=== PATIENT | female | born 2000 | race Asian ===

== ENCOUNTER 2022-08-10 02:54 | Observation (INO) ==
[2022-08-10] MEDS ORDERED: ONDANSETRON INJ 2 MG/ML 2 ML VIAL IV STA (03:06)
[2022-08-10] MEDS ORDERED: MoRPHine SULFATE 2 MG/ML CARP IV PRN ×2 (03:06→09:35)
[2022-08-10] MEDS ORDERED: SODIUM CHLORIDE 0.9% 1000ML 1,000 ML IV SCH (03:15)
[2022-08-10 03:36] LABS: Basophils # (auto) 0.02 K/uL (0-0.2); Basophils % (auto) 0.3 %; Eosinophils # (auto) 0.02 K/uL (0-0.50); Eosinophils % (auto) 0.3 %; Hematocrit (blood only) 37.9 % (34.1-44.9); Hemoglobin 11.9 g/dl (12.0-16.0); Immature Granulocytes # (auto) 0.03 K/uL (0.00-0.02); Immature Granulocytes % (auto) 0.4 %; Lymphocytes # (auto) 0.52 K/uL (1.2-3.4); Lymphocytes % (auto) 7.7 %; Mean Corpuscular Hemoglobin 24.2 pg (25.0-34.0); Mean Corpuscular Hgb Conc 31.4 g/dL (32.0-36.0); Mean Platelet Volume 11.4 fL (9.4-12.3); Monocytes # (auto) 0.55 K/uL (0.24-0.82); Monocytes % (auto) 8.1 %; Neutrophils # (auto) 5.61 K/uL (1.4-6.5); Neutrophils % (auto) 83.2 %; Platelet Count 302 K/uL (130-400); RDW Coefficient of Variation 15.2 % (11.5-14.5); RDW Standard Deviation 41.8 fL (36.4-46.3); Red Blood Count 4.92 M/uL (3.93-5.22); White Blood Count 6.75 K/ul (4.8-10.8)
[2022-08-10 03:43] LABS: Appearance Urine Cloudy (Clear); Bacteria Urine Automated Negative (Negative); Bilirubin Urine Negative (Negative); Blood Urine 3+ (Negative); Color Urine Dark Yellow; Epithelial Cell Urine Auto >30 /lpf (0-5); Glucose Urine UA Negative (Negative); Ketones Urine Negative (Negative); Leukocyte Esterase Urine 1+ (Negative); Nitrite Urine Negative (Negative); Protein Urine 1+ (Negative); RBC Urine Automated >30 /hpf (0-4); Specific Gravity Urine 1.018 (1.000-1.030); Urobilinogen Urine Negative (Negative)
[2022-08-10 04:04] LABS: Pregnancy Test, Serum Negative (Negative)
[2022-08-10 04:12] LABS: Albumin Globulin Ratio 1.4 (0.9-2); Albumin Level 4.7 gm/dl (3.4-5.0); BUN Creatinine Ratio 14.1 (10-20); Bilirubin,Total 0.4 mg/dl (0.2-1.0); Calcium 9.2 mg/dl (8.5-10.1); Creatinine Clr Calc Pharmacy 108.2 ml/min; Est GFR (African American) 148.9 ml/min; Est GFR (Non-African American) 128.5 ml/min; Globulin 3.4 gm/dl (2.5-4.0); Potassium 3.7 mmol/L (3.5-5.1); Total Protein 8.1 gm/dl (6.0-8.3)
[2022-08-10] MEDS ORDERED: OPTIRAY 350 100ml IV ONE (04:27)
--- NOTE | 2022-08-10 07:16 | Emergency Department Note ---
History of Present Illness General Chief complaint: Abdominal Pain Stated complaint: ABDOMINAL PAIN/VOMITING Time Seen by Provider: 08/10/22 03:02 History of Present Illness Maximum Pain Intensity: 0 This is a 22-year-old female presenting to the emergency department for evaluation of mid abdominal pain with nausea and vomiting. The patient symptoms began around 12 midnight, roughly 3 hours prior to arrival. She believes that she may have had symptoms like this once in the past, but they resolved and were not this severe. At worst her discomfort is a 9/10. She has not had fevers or chills. No chest pain, chest tightness, shortness of breath. She denies chance of . She has never had abdominal surgery. No new foods or recent travel. No friends are sick with similar symptoms. Allergies Allergy/AdvReac Type Severity Reaction Status Date / Time No Known Allergies Allergy Verified 08/10/22 08:44 Past Med/Surg History Medical History No chronic diseases present Surgical History No significant past surgical history Social History Smoking Status: Never smoker Tobacco Type: E-cigarettes / Vaping Hx Alcohol Use: Yes Alcohol type: beer, wine and hard liquor Hx Substance Use: No Preferred Language: Mandarin Estonian Communication Ability: Effective Thread Cutter Tender Required: No Beliefs That Will Affect Care: None Current Living Situation: Alone and Other Current Living Situation Comment: lives in an apartment with friends on campus Other Information That Helps Us Care for You: No Feels Safe at Home: Yes Safety Concerns: Feels Safe At This Time Assistive Devices: None Review of Systems A total of 10 systems reviewed and were otherwise negative Physical Exam Vital Signs Vital Signs - 24 hr 08/10/22 02:59 08/10/22 04:00 08/10/22 05:30 Temperature 36.5 C Temperature Source Temporal Artery Scan Pulse Rate 100 H Pulse Rate [Finger] 80 70 Respiratory Rate 18 18 18 Respiratory Effort / Characteristics Non-Labored Spontaneous Non-Labored Spontaneous Non-Labored Spontaneous Respiratory Depth Normal Normal Normal Respiratory Pattern Blood Pressure 125/93 Blood Pressure [Left Arm] 100/64 112/72 Blood Pressure Mean 103 Blood Pressure Mean [Left Arm] 76 85 Blood Pressure Position [Left Arm] Pulse Oximetry 97 100 98 Oxygen Delivery Method Room Air Room Air Room Air Sepsis New/Unexplained Change in Mental Status N/A Sepsis Action Taken by Nursing No Action Required 08/10/22 06:30 08/10/22 07:33 Temperature Temperature Source Pulse Rate Pulse Rate [Finger] 89 88 Respiratory Rate 18 18 Respiratory Effort / Characteristics Non-Labored Spontaneous Non-Labored Respiratory Depth Normal Normal Respiratory Pattern Regular Blood Pressure Blood Pressure [Left Arm] 119/68 109/80 Blood Pressure Mean Blood Pressure Mean [Left Arm] 85 89 Blood Pressure Position [Left Arm] Lying Pulse Oximetry 98 97 Oxygen Delivery Method Room Air Room Air Sepsis New/Unexplained Change in Mental Status Sepsis Action Taken by Nursing VITALS: Vitals are noted on the nurse's note and reviewed by myself. Vital signs stable. GENERAL: Well-developed, well-nourished, female, who is moderately uncomfortable on presentation. She is splinting her mid abdomen with her right hand. HEAD: Normocephalic atraumatic. HEART: Regular rate and rhythm without murmurs gallops or rubs. LUNGS: Clear to auscultation bilaterally without wheezes, rales or rhonchi. No retractions or accessory muscle use. ABDOMEN: Positive normal bowel sounds x 4. Soft with moderate periumbilical tenderness. No distinct lower abdominal tenderness. No CVA tenderness. No vilma ound or guarding. MUSCULOSKELETAL: No muscle atrophy, erythema, or edema noted. Full range of motion in all extremities. No tenderness to palpation. Normal gait. Strength 5/5 throughout. NEURO: Patient was alert and oriented to person place and time. CN II through XII grossly intact. Course Administered Medications Lactated Ringer's (Lr) 1,000 mls @ 80 mls/hr IV .[id number] [facility] Stop: 08/11/22 10:34 Last Admin: 08/10/22 10:05 Dose: 80 mls/hr Documented By: RT Acetaminophen (Ofirmev) 1,000 mg in 100 mls @ 400 mls/hr IV Q8H [facility] Stop: 08/13/22 15:59 Last Admin: 08/10/22 10:05 Dose: Not Given Documented By: RT Discontinued Medications Acetaminophen (Acetaminophen 1000 Mg/100 Ml Iv) 1,000 mg IV NOW ONE Stop: 12/21/22 08:31 Last Admin: 08/10/22 08:35 Dose: 1,000 mg Documented By: Sodium Chloride (Nss 1000ml) 1,000 mls @ 999 mls/hr IV .[id number] [facility] Stop: 08/10/22 04:15 Last Infusion: 08/10/22 04:26 Dose: 0 mls/hr Documented By: Admin: 08/10/22 03:24 Dose: 999 mls/hr Documented By: FERNANDO Ioversol (Optiray 350 100ml) 100 ml IV ONCE ONE Stop: 08/10/22 04:28 Last Admin: 08/10/22 04:28 Dose: 82 ml Documented By: JASON Morphine Sulfate (Morphine Sulfate 2 Mg/Ml Carp) 2 mg IV Q15M PRN PRN Reason: Pain Stop: 08/24/22 03:05 Last Admin: 08/10/22 03:25 Dose: 2 mg Documented By: FERNANDO Ondansetron HCl (Ondansetron Inj 2 Mg/Ml 2 Ml Vial) 4 mg IV NOW STA Stop: 08/10/22 03:07 Last Admin: 08/10/22 03:24 Dose: 4 mg Documented By: FERNANDO Medical Decision Making Laboratory Data Result diagrams: 08/10/22 03:20 08/10/22 03:20 Lab Results 08/10/22 08/10/22 08/10/22 Range/Units 03:20 03:20 03:20 WBC 6.75 (4.8-10.8) K/ul RBC 4.92 (3.93-5.22) M/uL Hgb 11.9 L (12.0-16.0) g/dl Hct 37.9 (34.1-44.9) % MCV 77.0 L (80.0-100.0) fL MCH 24.2 L (25.0-34.0) pg MCHC 31.4 L (32.0-36.0) g/dL RDW Std Deviation 41.8 (36.4-46.3) fL RDW Coeff of Sagar 15.2 H (11.5-14.5) % Plt Count 302 (130-400) K/uL MPV 11.4 (9.4-12.3) fL Immature Gran % (Auto) 0.4 % Neut % (Auto) 83.2 % Lymph % (Auto) 7.7 % [place] % (Auto) 8.1 % Eos % (Auto) 0.3 % Baso % (Auto) 0.3 % Neut # (Auto) 5.61 (1.4-6.5) K/uL Lymph # (Auto) 0.52 L (1.2-3.4) K/uL [place] # (Auto) 0.55 (0.24-0.82) K/uL Eos # (Auto) 0.02 (0-0.50) K/uL Baso # (Auto) 0.02 (0-0.2) K/uL Immature Gran # (Auto) 0.03 H (0.00-0.02) K/uL Sodium 139 (136-145) mmol/L Potassium 3.7 (3.5-5.1) mmol/L Chloride 103 (98-107) mmol/L Carbon Dioxide 30 (21-32) mmol/L Anion Gap 6 (3-11) BUN 9 (6-23) mg/dl Creatinine 0.64 (0.6-1.2) mg/dl Est Cr Clr Drug Dosing 108.2 ml/min Est GFR ( Amer) 148.9 ml/min Est GFR (Non-Af Amer) 128.5 ml/min BUN/Creatinine Ratio 14.1 (10-20) Glucose 107 H (70-99(Fasting)) mg/dl Calcium 9.2 (8.5-10.1) mg/dl Total Bilirubin 0.4 (0.2-1.0) mg/dl AST 21 (13-39) U/L ALT 16 (7-52) U/L Alkaline Phosphatase 76 (34-104) U/L Total Protein 8.1 (6.0-8.3) gm/dl Albumin 4.7 (3.4-5.0) gm/dl Globulin 3.4 (2.5-4.0) gm/dl Albumin/Globulin Ratio 1.4 (0.9-2) Lipase 27 (11-82) U/L HCG, Qual Negative (Negative) Urine Color Urine Appearance (Clear) Urine pH (4.5-7.5) Ur Specific Griffith (1.000-1.030) Urine Protein (Negative) Urine Glucose (UA) (Negative) Urine Ketones (Negative) Urine Blood (Negative) Urine Nitrite (Negative) Urine Bilirubin (Negative) Urine Urobilinogen (Negative) Ur Leukocyte Esterase (Negative) Urine WBC (Auto) (0-5) /hpf Urine RBC (Auto) (0-4) /hpf U Hyaline Cast (Auto) (0-5) /lpf U Epithel Cells (Auto) (0-5) /lpf Urine Bacteria (Auto) (Negative) SARS-CoV-2, RNA, NAAT (NEGATIVE) 08/10/22 08/10/22 Range/Units 03:20 07:09 WBC (4.8-10.8) K/ul RBC (3.93-5.22) M/uL Hgb (12.0-16.0) g/dl Hct (34.1-44.9) % MCV (80.0-100.0) fL MCH (25.0-34.0) pg MCHC (32.0-36.0) g/dL RDW Std Deviation (36.4-46.3) fL RDW Coeff of Sagar (11.5-14.5) % Plt Count (130-400) K/uL MPV (9.4-12.3) fL Immature Gran % (Auto) % Neut % (Auto) % Lymph % (Auto) % [place] % (Auto) % Eos % (Auto) % Baso % (Auto) % Neut # (Auto) (1.4-6.5) K/uL Lymph # (Auto) (1.2-3.4) K/uL [place] # (Auto) (0.24-0.82) K/uL Eos # (Auto) (0-0.50) K/uL Baso # (Auto) (0-0.2) K/uL Immature Gran # (Auto) (0.00-0.02) K/uL Sodium (136-145) mmol/L Potassium (3.5-5.1) mmol/L Chloride (98-107) mmol/L Carbon Dioxide (21-32) mmol/L Anion Gap (3-11) BUN (6-23) mg/dl Creatinine (0.6-1.2) mg/dl Est Cr Clr Drug Dosing ml/min Est GFR ( Amer) ml/min Est GFR (Non-Af Amer) ml/min BUN/Creatinine Ratio (10-20) Glucose (70-99(Fasting)) mg/dl Calcium (8.5-10.1) mg/dl Total Bilirubin (0.2-1.0) mg/dl AST (13-39) U/L ALT (7-52) U/L Alkaline Phosphatase (34-104) U/L Total Protein (6.0-8.3) gm/dl Albumin (3.4-5.0) gm/dl Globulin (2.5-4.0) gm/dl Albumin/Globulin Ratio (0.9-2) Lipase (11-82) U/L HCG, Qual (Negative) Urine Color Dark Yellow Urine Appearance Cloudy A (Clear) Urine pH 5.0 (4.5-7.5) Ur Specific Griffith 1.018 (1.000-1.030) Urine Protein 1+ H (Negative) Urine Glucose (UA) Negative (Negative) Urine Ketones Negative (Negative) Urine Blood 3+ H (Negative) Urine Nitrite Negative (Negative) Urine Bilirubin Negative (Negative) Urine Urobilinogen Negative (Negative) Ur Leukocyte Esterase 1+ H (Negative) Urine WBC (Auto) 10-30 H (0-5) /hpf Urine RBC (Auto) >30 H (0-4) /hpf U Hyaline Cast (Auto) 1-5 (0-5) /lpf U Epithel Cells (Auto) >30 H (0-5) /lpf Urine Bacteria (Auto) Negative (Negative) SARS-CoV-2, RNA, NAAT POSITIVE A* (NEGATIVE) Imaging Data Radiologist's Impression: Preliminary Findings Only See Final Report For Complete Findings CT ABDOMEN & PELVIS With Contrast: Impression: Dilated small bowel loops seen in the left abdomen measuring up to 3.1 cm in diameter suggestive of partial small bowel obstruction. Small bowel feces sign s een in the pelvis. There The findings are suggestive of partial distal small bowel obstruction Small amount of free fluid in the pelvis Radiologist:Fredi Alvarez MD [facility] Narrative Physical exam and history were performed. Nursing notes, EMR, and Medication List were personally reviewed. Patient appears to have mid abdominal pain with nausea and vomiting. She does appear uncomfortable on presentation and does have reproducible tenderness, however the tenderness is primarily around the umbilicus. IV access was esta blished and labs were obtained. She was hydrated with normal saline and given IV morphine and IV Zofran. The patient does not seem to be able to tolerate oral contrast at this time, and she was sent to CT scan for imaging with IV contrast of the abdomen and pelvis. The patient's blood work is as above and was reviewed. She does not have a significantly elevated white blood cell count, gross anemia, bandemia, or significant electrolyte imbalance. Lipase and transaminases are not diagnostic. Urine is with some blood and esterase but not distinctly with evidence of infection. She is not having UTI symptoms clinically. is negative. CT scan was reviewed by Priscila, and is suggestive of a partial small bowel obstruction. On reevaluation the patient continues to have discomfort and was given additional pain medication. I discussed options of care including admission to the facility versus discharge home. The patient deliberated for about 75 minutes, speaking with friends, and family by telephone. The patient is concerned that she will have worsening symptoms, and I explained this is certainly a possibility. After extensive conversation the patient would like to stay in the hospital for further care. The case was discussed with the on-call hospitalist team. Please see their dictation for further patient course, plan, disposition. The chart was completed utilizing [employer] Speech Voice Recognition Software. Grammatical errors, random word insertions, pronoun errors, and incomplete sentences are an occasional consequence of this system due to software limit ations, ambient noise, and hardware issues. Any formal questions or concerns about the content, text, or information contained within the body of this dictation should be directly addressed to the provider for clarification. . Impression & Plan Abdominal pain, Nausea and vomiting, COVID-19 Discharge Plan Visit Data Chief Complaint: Abdominal Pain Stated Complaint: ABDOMINAL PAIN/VOMITING ED Provider: [facility] Midlevel Provider: Anirudh Murphy Discharge Problem: Abdominal pain, Nausea and vomiting, COVID-19 Patient Disposition: Admitted As Inpatient Discharge Instructions Interventions: ED Discharge Assessment Last Done: 08/10/22 09:17
--- NOTE | 2022-08-10 08:20 | History & Physical Report ---
Date of Service August 10, 2022 Assessment & Plan (1) Abdominal pain: Plan: 22yo female without significant PMH presents with a one-day history of abdominal pain, nausea, and vomiting; covid PCR performed on admission was positive. Abdominal pain, nausea, vomiting VSS; labs notable only for mild anemia; patient is without leukocytosis, platelets wnl, no electrolyte abnormalities, LFTs wnl CT a/p: multiple mildly dilated jejunal loops with a small amount of associated ascites and mesenteric stranding without a well-defined transition point, suspicious for partial SBO vs enteritis Admit to med/surg; NPO except sips/chips Conservative management is appropriate at this time; consider consulting general surgery or gastroenterology if patient clinically worsens Pain control: APAP 1g IV q8h scheduled, morphine 1mg q3h prn moderate/severe pain LR @ 80mL/hr (x2 bags ordered) Zofran for nausea Covid Patient tested positive on arrival; patient does endorse a few-day history of mild cough and mild sore throat Vitals stable, spO2 adequate on room air, lungs CTABL Likely contributing to the above symptoms, although I don't think covid alone can explain patient's severe abdominal pain Covid precautions ordered Patient is not at high risk for progression to severe illness; remdesivir / other interventions not indicated FEN: NPO pending improvement in symptoms; LR @ 80mL/hr (x2 bags ordered) Code status: full code DVT ppx: ambulation Isolation: covid Dispo: med/surg (2) Nausea and vomiting: (3) COVID-19: History of Present Illness Primary Care Provider: [facility] 22yo female without significant PMH presents with a one-day history of abdominal pain, nausea, and vomiting. Symptoms started around midnight last night. Pain is 9/10 at its worst and is generalized throughout the abdomen. Pain does not radiate. Patient denies any identifiable trigger. Patient also notes a very mild cough and a mild sore throat for the past few days. Patient denies fever, chills, CP, SOB, dysuria, lightheadedness, dizziness, numbness, tingling, weakness, or other symptoms. Patient denies recent illness, known sick contacts, or recent travel. No history of abdominal surgery. Patient denies any chance of . Upon arrival, vitals were stable; BP controlled, no tachycardia, no tachypnea, patient afebrile, spO2 adequate on room air. Initial labs were notable only for very mild microcytic anemia (Hgb 11.9, MCV 77, RDW 15.2%) and a positive covid PCR; no leukocytosis, platelets wnl, no electrolyte abnormalities, creatinine not elevated, LFTs wnl, Tbili not elevated. Urine test negative. UA was notable for WBCs, leuk esterase, and 3+ blood, but was likely contaminated, and patient is not having urinary symptoms. In the ED, patient received IV fluids, morphine, and zofran. Patient's pain improved with morphine. CT a/p with IV contrast: multiple mildly dilated jejunal loops with a small amount of associated ascites and mesenteric stranding without a well-defined transition point, suspicious for partial SBO vs enteritis Allergies Allergy/AdvReac Type Severity Reaction Status Date / Time No Known Allergies Allergy Verified 08/10/22 08:44 Past Med/Surg History Medical History No chronic diseases present Surgical History No significant past surgical history Social History Smoking Status: Never smoker Tobacco Type: E-cigarettes / Vaping Hx Alcohol Use: Yes Alcohol type: beer, wine and hard liquor Hx Substance Use: No Preferred Language: Mandarin Citizen Of [place] Communication Ability: Effective Hotel Services Supervisor Required: No Beliefs That Will Affect Care: None Current Living Situation: Alone and Other Current Living Situation Comment: lives in an apartment with friends on campus Other Information That Helps Us Care for You: No Feels Safe at Home: Yes Safety Concerns: Feels Safe At This Time Assistive Devices: None Physical Exam Physical Exam: Constitutional: well-appearing, no acute distress, standing in hospital room, holding abdomen HEENT: NCAT, no conjunctival injection CV: regular rhythm, no murmur appreciated, extremities well-perfused, no LE edema Resp: CTABL, no wheezes/rales/rhonchi appreciated, no increased work of breathing GI: soft, nondistended, moderate generalized tenderness MSK: no gross deformities appreciated Skin: warm, dry, no rash appreciated Neuro: alert, oriented, no focal neurologic deficit appreciated Results & Data Results & Data ([facility]) Vital Signs (Past 12 Hours) Vital Signs Temp Pulse Pulse Resp BP BP Pulse Ox 08/10/22 07:33 88 18 109/80 97 08/10/22 06:30 89 18 119/68 98 08/10/22 05:30 70 18 112/72 98 08/10/22 04:00 80 18 100/64 100 08/10/22 02:59 36.5 C 100 H 18 125/93 97 O2 Del Method 08/10/22 07:33 Room Air 08/10/22 06:30 Room Air 08/10/22 05:30 Room Air 08/10/22 04:00 Room Air 08/10/22 02:59 Room Air Code Status & VTE Plan VTE Prophylaxis Plan VTE Prophylaxis will be ordered: No Reason for no VTE drug order: Treatment not indicated Supervising Physician Co-Signing Physician Notes I personally examined the patient and verified all barlow points of history and exam, discussed case, and agree with decision making with Dr Beltrán Feeling better by the time I see her. Would like to try to eat. Notes fairly abrupt onset of abdominal pain shortly after eating dinner that essentially lasted all night, she did vomit at the peak crescendo of the pain, but has not had multiple/repeated episodes of vomiting, pain was predominantly periumbilical and now for all intents and purposes gone. Notes that she probably usually has a bowel movement 2-3 times a week and is usually fairly small. Of note no diarrhea during the acute episode. Vitals noted, in general she is awake and alert pleasant no distress. HEENT normocephalic atraumatic mucous membranes moist. Breathing unlabored no accessory muscle use good effort. Skin shows no rashes no pallor or icterus. Exam otherwise as above. Intractable abdominal painCT scan findings nonspecific but suggestive of partial SBO, possible enteritisthis certainly raises the specter of a COVID enteritis causing her abdominal pain. At the same time her history and fecal load on CAT scan seem to fit more with symptomatic constipation. Discussed extensively with patient, answered all questions to the best of my ability and to her satisfaction. Otherwise as above. Resident Activity Tracking Resident Involvement: Resident Care Provided Care Provided: Adult Hospital Medicine
--- NOTE | 2022-08-10 08:24 | CT Scan Report ---
CT OF THE ABDOMEN AND PELVIS WITH CONTRAST CLINICAL HISTORY: Mid abdominal pain. COMPARISON STUDY: None. TECHNIQUE: Following IV administration of 82 mL of Optiray, axial images of the abdomen and pelvis we re obtained from the lung bases to the proximal femurs. Images were reviewed in the axial, sagittal, and coronal planes. IV contrast was administered without complication. Automated exposure control wa s utilized for the study. A dose lowering technique was utilized adhering to the principles of ALARA . CT DOSE: 280.60 mGy.cm FINDINGS: Trace left pleural effusion is noted. No pneumatosis, free air or portal venous gas is pres ent. The liver, spleen, adrenal glands, kidneys and pancreas are normal. Is no biliary or pancreatic ductal dilatation. There is no hydronephrosis. The appendix is normal. There are multiple loops of mi ldly dilated jejunal loops. These loops are fluid-filled. Poorly formed stool is noted within multipl e small bowel loops. There is a small amount of associated ascites and mesenteric infiltration. A wel l-defined transition point is not identified however the the distal small bowel is relatively decompr essed. A small amount of fluid within the pelvis is noted. The ovaries are not enlarged. Major vascul ature is patent. There is no lymphadenopathy. No fluid collection is identified to suggest an abscess . IMPRESSION: 1. Normal appendix. 2. Multiple mildly dilated jejunal loops with a small amount of associated ascites and mesenteric str anding. No well-defined transition point. The findings could reflect a partial small bowel obstructio n or an enteritis. ACT 112: Negative or not required by law. Electronically signed by: Varun Lu M.D. 08/10/2022 8:22 AM
[2022-08-10] MEDS ORDERED: ACETAMINOPHEN 1000 MG/100 ML IV IV SCH (08:30)
[2022-08-10] MEDS ORDERED: ACETAMINOPHEN 1000 MG/100 ML IV IV ONE (08:30)
[2022-08-10] MEDS ORDERED: ONDANSETRON INJ 2 MG/ML 2 ML VIAL IV PRN (09:35)
[2022-08-10] MEDS ORDERED: ACETAMINOPHEN 1,000 MG/100 ML VIAL IV PRN (09:35)
[2022-08-10] MEDS: ACETAMINOPHEN 1,000 MG/100 ML VIAL IV SCH ×2 (10:05→23:19)
[2022-08-10] MEDS: LACTATED RINGER'S 1,000 ML IV SCH ×2 (10:05→21:29)
--- NOTE | 2022-08-10 19:07 | Billing Data ---
Date of Service August 10, 2022 Coding Level of Care Code INT OBSERVATION CARE 70M LVL 3
--- NOTE | 2022-08-11 08:31 | Discharge Summary ---
Date of Service August 11, 2022 Admission HPI Per Admitting Provider 22yo female without significant PMH presents with a one-day history of abdominal pain, nausea, and vomiting. Symptoms started around midnight last night. Pain is 9/10 at its worst and is generalized throughout the abdomen. Pain does not radiate. Patient denies any identifiable trigger. Patient also notes a very mild cough and a mild sore throat for the past few days. Patient denies fever, chills, CP, SOB, dysuria, lightheadedness, dizziness, numbness, tingling, weakness, or other symptoms. Patient denies recent illness, known sick contacts, or recent travel. No history of abdominal surgery. Patient denies any chance of . Upon arrival, vitals were stable; BP controlled, no tachycardia, no tachypnea, patient afebrile, spO2 adequate on room air. Initial labs were notable only for very mild microcytic anemia (Hgb 11.9, MCV 77, RDW 15.2%) and a positive covid PCR; no leukocytosis, platelets wnl, no electrolyte abnormalities, creatinine not elevated, LFTs wnl, Tbili not elevated. Urine test negative. UA was notable for WBCs, leuk esterase, and 3+ blood, but was likely contaminated, and patient is not having urinary symptoms. In the ED, patient received IV fluids, morphine, and zofran. Patient's pain improved with morphine. CT a/p with IV contrast: multiple mildly dilated jejunal loops with a small amount of associated ascites and mesenteric stranding without a well-defined transition point, suspicious for partial SBO vs enteritis Admission Exam Per Admitting Provider Constitutional: well-appearing, no acute distress, standing in hospital room, holding abdomen HEENT: NCAT, no conjunctival injection CV: regular rhythm, no murmur appreciated, extremities well-perfused, no LE edema Resp: CTABL, no wheezes/rales/rhonchi appreciated, no increased work of breathing GI: soft, nondistended, moderate generalized tenderness MSK: no gross deformities appreciated Skin: warm, dry, no rash appreciated Neuro: alert, oriented, no focal neurologic deficit appreciated Principal Diagnosis Viral gastroenteritis, covid Discharge Exam Constitutional: well-appearing, no acute distress CV: regular rhythm, no murmur appreciated, extremities well-perfused, no LE edema Resp: CTABL, no wheezes/rales/rhonchi appreciated, no increased work of breathing GI: soft, nondistended, nontender, BS normoactive Neuro: alert, oriented, no focal neurologic deficit appreciated Discharge Data Allergies Allergy/AdvReac Type Severity Reaction Status Date / Time No Known Allergies Allergy Verified 08/10/22 08:44 Consultations 08/10/22 07:28 ED Decision to Admit Stat Ordered Studies 08/10/22 03:06 CT abd pelvis IV con only Urgent Hospital Course (1) Abdominal pain: Abdominal pain, nausea, vomiting On arrival, vitals were stable, and labs were notable only for mild anemia (in addition to positive covid test - see below). Patient was without leukocytosis, electrolyte abnormalities, or transaminitis. CT a/p was suspicious for partial SBO vs enteritis. Patient was treated conservatively with IVF, pain control, and antiemetics. On hospital day one, patients symptoms completely resolved. Patient remained stable overnight and was discharged on hospital day two in stable condition. PCP follow-up is recommended. Covid Patients covid PCR test on admission resulted positive. Patient reported a mild sore throat and mild cough, but beyond the above symptoms, patient was asymptomatic. Oxygen saturation stayed adequate on room air. Patient was felt to be at low risk for progression to severe illness, so no further intervention was indicated. PCP follow-up is recommended. Anemia On routine labs, patient was noted to have a mild microcytic anemia (Hgb 9.8, MCV 76.5). This was not felt to be contributory to patient's clinical picture. Outpatient follow-up is recommended. (2) Nausea and vomiting: (3) COVID-19: Total Time Total Time Spent Total Time Spent (In Minutes): see attending documentation Discharge Plan Discharge Items Patient Disposition: Home - Self-Care Reason For Visit: ABD PAIN Discharge Diagnosis: COVID, enteritis Activity: Per Instructions section Non-emergency contact: Primary Care Provider Call non-emergency contact if: you have any medication questions and your symptoms worsen Follow-up/Referrals: [facility] [Primary Care Provider] - Diet: Regular Addtl Attending Provider Instructions: You were admitted to [facility] due to abdominal pain, nausea, and vomiting. You were found to have a positive COVID test. Additionally, a CT scan of your abdomen showed findings concerning for a possible small bowel obstruction however, it is possible that these findings could also be explained by an enteritis, likely related to your COVID. Your diet was slowly advanced throughout the day and you were able to tolerate dinner without recurrence of pain, nausea or vomiting. As discussed, if you were to have an obstruction that worsens at home this could turn into a medical/surgical emergency. Our best recommendation would be to remain in the hospital overnight for monitoring and plan for discharge early in the morning if symptoms do not return. However, due to your reassuring physical examination and lack of recurring symptoms, we have agreed to discharge you home per your preference. It is very important that you monitor for any worsening of symptoms. If you get nauseous or have vomiting again, your abdominal pain returns and/or gets worse, or you have any new concerning symptoms, please return to the hospital for reevaluation. With regards to your COVID diagnosis, this is a viral illness that is managed with symptomatic, supportive care. You may take Tylenol for any pain, such as sore throat or headaches, as well as fevers. Make sure to drink lots of fluids to maintain your hydration. Pending Studies at Discharge: No Stand-Alone Forms: My [facility] Medications and DC Order Discharge Orders: Discharge Order (Routine); Ordered 08/11/22 Ordered By: Fermin Soriano/Other Patient Handouts: COVID-19 Home Care Admission Data Admit Date/Time: 08/10/22 07:43 Attending Provider: Binh Camarillo Admit Provider: Goyo Porter Primary Care Provider: [facility] Other Providers: Goyo Porter Other Interventions: Discharge Summary Assessment (RN) Last Done: 08/11/22 10:05 Supervising Physician Co-Signing Physician Notes I personally examined the patient and verified all barlow points of history and exam, discussed case, and agree with decision making with Dr Beltrán Patient reports feeling better, tolerated diet. Abdominal pain has subsided, and patient no longer vomiting. Vitals noted, in general she is awake and alert pleasant no distress. HEENT normocephalic atraumatic mucous membranes moist. Breathing unlabored no accessory muscle use good effort. Skin shows no rashes no pallor or icterus. Exam otherwise as above. Discussed extensively with patient, answered all questions to the best of my ability and to her satisfaction. Otherwise as above. Resident Activity Tracking Resident Involvement: Resident Care Provided Care Provided: Adult Hospital Medicine
[2022-08-11] MEDS: ACETAMINOPHEN 1,000 MG/100 ML VIAL IV SCH (09:05)
[2022-08-11 09:19] LABS: Hematocrit (blood only) 31.2 % (34.1-44.9); Hemoglobin 9.8 g/dl (12.0-16.0); Mean Corpuscular Hgb Conc 31.4 g/dL (32.0-36.0); Mean Corpuscular Volume 76.5 fL (80.0-100.0); Mean Platelet Volume 11.7 fL (9.4-12.3); Platelet Count 244 K/uL (130-400); RDW Coefficient of Variation 15.6 % (11.5-14.5); RDW Standard Deviation 42.5 fL (36.4-46.3); Red Blood Count 4.08 M/uL (3.93-5.22); White Blood Count 3.66 K/ul (4.8-10.8)
[2022-08-11 09:57] LABS: Alanine Aminotransferase 12 U/L (7-52); Albumin Globulin Ratio 1.4 (0.9-2); Albumin Level 3.6 gm/dl (3.4-5.0); Alkaline Phosphatase 57 U/L (34-104); Anion Gap 4 (3-11); Aspartate Aminotransferase 18 U/L (13-39); BUN Creatinine Ratio 14.5 (10-20); Bilirubin,Total 0.3 mg/dl (0.2-1.0); Blood Urea Nitrogen 8 mg/dl (6-23); Calcium 8.2 mg/dl (8.5-10.1); Carbon Dioxide 27 mmol/L (21-32); Chloride 108 mmol/L (98-107); Creatinine Clr Calc Pharmacy 116.4 ml/min; Est GFR (African American) > 150.0 ml/min; Globulin 2.5 gm/dl (2.5-4.0); Glucose 82 mg/dl (70-99(Fasting)); Potassium 3.8 mmol/L (3.5-5.1); Sodium 139 mmol/L (136-145); Total Protein 6.1 gm/dl (6.0-8.3)
--- NOTE | 2022-08-14 17:38 | Billing Data ---
Date of Service August 11, 2022 Coding Level of Care Code 39232 OBS Care - Discharge Time Spent (min) 45
== END 2022-08-11 12:40 | disposition home or self-care (01) ==
LOC: ED 02:54 → 3W 02:54 → SUATTDRO 07:43 → 3W 09:17